=== PATIENT | male | born 1970 | race Caucasian/White ===

== ENCOUNTER 2016-09-07 13:56 | Emergency (ER) | payer OTHER ==
--- NOTE | ~2016-09-07 | CR72 ---
[facility] A Service of [facility] & [facility] RADIOLOGY TEXT RESULTS PATIENT: FLORIDALMA ROSALES LOCATION: SED : 72 UNIT #: [id number] AGE: [address]: Royal Brady MD SEX: M ORDER DR: [id number] [address] [address] [id number] MR#: [id number] Acc #: [id number] NAME: FLORIDALMA ROSALES : 1970 SEX: M STUDY DATE/TIME: 09/07/2016 13:36 UNIT: SED ROOM: STUDY DESCRIPTION: CR Chest Single View Portable Attending Physician: Royal Brady M.D. Ordering Physician: Royal Brady M.D. Primary Care Physician: Ceasar Joseph M.D. MEDICAL IMAGING REPORT This report is preliminary unless electronic signature is present. EXAM Frontal chest 09/07/2016 INDICATIONS Lower extremity edema bilaterally in a 46-year-old male swelling in legs for 2 weeks. Prostate cancer. TECHNIQUE Frontal chest compared with 01/30/2010 FINDINGS Cardiac silhouette is within normal limits. The vascularity is unremarkable. There is no dense consolidation, effusion or pneumothorax. IMPRESSION 1. Negative frontal chest. Improved appearance compared to 01/30/2010. Dictated by... Junito Campbell M.D. THIS IS AN ELECTRONICALLY VERIFIED REPORT Junito Campbell M.D. at 09/08/2016 8:10 AM ASHLEY/deirdre TD: 09/07/2016 15:24 JOB #: [id number] MEDICAL IMAGING REPORT Page 1 of 1
--- NOTE | ~2016-09-07 | EKG ---
PATIENT: FLORIDALMA ROSALES UNIT #: [id number] Ventricular Rate: 68 BPM Atrial Rate: 68 BPM P-R Interval: 198 ms QRS Duration: 98 ms Q-T Interval: 402 ms QTC Calculation(Bezet): 427 ms P Calcium: 32 degrees Calculated R Calcium: -15 degrees Calculated T Calcium: 21 degrees Diagnosis Line: Normal sinus rhythm Diagnosis Line: Inferior infarct (cited on or before 08-JAN-2016) Diagnosis Line: Poor R wave progression questionable lead position Diagnosis Line: or body habitus Diagnosis Line: Abnormal ECG Diagnosis Line: When compared with ECG of 08-JAN-2016 17:40, Diagnosis Line: No significant change was found Diagnosis Line: Confirmed by MARNI MUSE MD ([id number]) on 09/08/2016 Diagnosis Line: 2:48:14 PM INTERPRETING MD: ALMAZ MORALES
[~2016-09-07 13:56] MED LIST: ACID REDUCER75 M1 PO; AMLODIPINE BESYL5 MG PO; AMOXIL400 MG/51 PO; BACTRIM DS TABL1 TA1 PO; CIALIS5 MG PO; CIPRO PO; FLEXERIL PO; FLEXERIL10 MG PO; FLOMAX0.4 M1 PO; IBUPROFEN PO; LISINOPRIL20 MG PO; LORTAB 10-5001 EACH PO; LORTAB 7.5-5001 TAB PO; MOBIC PO; NO MEDICATIONS; NORVASC10 MG PO; PERCOCET 5-3251 TAB PO; PERCOCET5/325 PO; PHENERGAN25 MG PO; PRINIVIL40 MG PO; SILVADENE TOP; VICODIN 5/1 TAB 5/50 PO; VICODIN 5/500 T1 TAB PO; VOLTAREN25 MG PO; [UNRECOGNIZED DRUG - OTHER] PO
[2016-09-07 14:12] LABS: BASOPHIL% 0.7 % (0-2.5); EOSINOPHIL# 0.2 X10e3 (0-0.7); EOSINOPHIL% 2.6 % (0.0-7.0); HEMATOCRIT 41.7 % (38.0-50.0); HEMOGLOBIN 13.7 gm/dL (13.0-16.0); LYMPHOCYTE# 1.1 X10e3 (1.0-3.5); LYMPHOCYTE% 17.7 % (17.0-45.0); MEAN CELL VOLUME 88.8 FL (83-96); MEAN CORPUSCULAR HEMOGLOBIN 29.1 PG (28-34); MEAN CORPUSCULAR HGB CONC 32.8 g/dL (30-36); MEAN PLATELET VOLUME 6.5 FL (6.5-11.5); MONOCYTE# 0.6 X10e3 (0-1.0); MONOCYTE% 10.4 % (3.0-12.0); NEUTROPHIL# 4.1 X10e3 (1.5-7.1); NEUTROPHIL% 68.6 % (40-75); PLATELET COUNT 362 X10e3 (140-420); WHITE BLOOD COUNT 5.9 X10e3 (4.0-10.5)
[2016-09-07 14:13] LABS: DIFF IND NO
[2016-09-07 14:20] LABS: POC - TROPONIN <0.05 ng/mL (<=0.05)
[2016-09-07 14:35] LABS: ALBUMIN SERUM 4.6 g/dL (3.5-5.0); ALKALINE PHOSPHATASE 61 U/L (32-92); ALT (SGPT) 14 U/L (10-40); AST (SGOT) 17 U/L (10-42); BILIRUBIN,TOTAL 0.3 mg/dL (0.2-2.0); BLOOD UREA NITROGEN 12 mg/dL (9-23); CALCIUM SERUM 9.4 mg/dL (8.4-10.2); CARBON DIOXIDE 27 mmol/L (22-31); CHLORIDE 103 mmol/L (100-111); CREATININE SERUM 1.1 mg/dL (0.6-1.4); GLOM FILT RATE Estimated 80.7 mL/min (>60); GLUCOSE FASTING 105 mg/dL (70-110); POTASSIUM 4.1 mmol/L (3.5-5.1); SODIUM 138 mmol/L (135-145)
[2016-09-07 14:36] LABS: ALCOHOL BLOOD <5 mg/dL ([, 0]); BILIRUBIN, DIRECT <0.1 mg/dL (0.0-0.2); BILIRUBIN,INDIRECT 0.2 mg/dL (0.0-0.9)
[2016-09-07 15:21] LABS: URINE APPEARANCE CLEAR; URINE BILIRUBIN NEG (NEG); URINE BLOOD NEG (NEG); URINE COLOR YELLOW; URINE GLUCOSE NEG (NORM); URINE KETONE NEG (NEG); URINE LEUKOCYTE ESTERASE NEG (NEG); URINE NITRATE NEG (NEG); URINE PH 5.5 (5-8); URINE PROTEIN NEG (NEG); URINE SPECIFIC GRAVITY 1.015 (1.003-1.035); URINE UROBILINOGEN 0.2 MG/DL (NORM)
[2016-09-07 15:25] LABS: MICRO INDICATED? NO; URINE SOURCE CLEAN CATCH
[2016-09-07 15:32] LABS: AMPHETAMINE POS (NEG); BARBITURATES NEG (NEG); BENZODIAZEPINES NEG (NEG); COCAINE NEG (NEG); MARIJUANA NEG (NEG); OPIATES NEG (NEG); TRICYCLIC ANTIDEPRESSANTS NEG (NEG); U METHADONE NEG (NEG)
== END 2016-09-07 16:00 | disposition home or self-care (01) ==
LOC: SED 13:56
PROVIDERS: Emergency Medicine
DX: R60.0 Localized edema (principal); I10 Essential (primary) hypertension; F17.210 Nicotine dependence, cigarettes, uncomplicated; Z88.5 Allergy status to narcotic agent; Z79.899 Other long term (current) drug therapy; K21.9 Gastro-esophageal reflux disease without esophagitis; R06.02 Shortness of breath
CPT/HCPCS: 36415; 71010; 80048; 80076; 80307; 81003; 82553; 83880; 84484; 85025; 93005; 99283; G0480